=== PATIENT | male | born 1980 | race Caucasian/White ===

== ENCOUNTER 2017-10-03 11:23 | Inpatient (IN) | payer MEDICAID, OTHER, SELFPAY ==
[2017-10-03] MEDS: NICOTINE 21MG/24HR 1 EA TRANSDERMAL TD (09:00)
[2017-10-03] MEDS: FOLIC ACID 1 MG TAB PO (09:00)
[2017-10-03] MEDS ORDERED: MOM 30ML SUSPENSION UDC PO (14:00)
[2017-10-03] MEDS ORDERED: ACETAMINOPHEN TAB 650MG DOSE (2X325MG) PO (14:00)
[2017-10-03] MEDS ORDERED: LORazepam 2 MG TAB PO (14:00)
[2017-10-03] MEDS ORDERED: traZODone 50 MG TAB PO (14:00)
[2017-10-03] MEDS ORDERED: MAALOX 30 ML SUSP *UDC PO (14:00)
[2017-10-03] MEDS: THIAMINE 100 MG TAB PO ×2 (14:51→21:00)
[2017-10-03] MEDS: MULTIVITAMINS/MINERALS THERAP 1 TAB PO (14:51)
[2017-10-04] MEDS: FOLIC ACID 1 MG TAB PO (08:59)
[2017-10-04] MEDS: MULTIVITAMINS/MINERALS THERAP 1 TAB PO (08:59)
[2017-10-04] MEDS: NICOTINE 21MG/24HR 1 EA TRANSDERMAL TD (08:59)
[2017-10-04] MEDS: THIAMINE 100 MG TAB PO ×2 (08:59→21:00)
[2017-10-04] MEDS: SERTRALINE HCL 50 MG TAB PO (09:00)
[2017-10-04 11:46] LABS: HEMATOCRIT 43.2 % (42.0-52.0); HEMOGLOBIN 14.4 g/dl (13.5-17.5); MEAN CORPUSCULAR HEMOGLOBIN 30.6 pg (27.0-33.0); MEAN CORPUSCULAR HGB CONC 33.3 g/dl (32.0-36.5); MEAN CORPUSCULAR VOLUME 91.9 fl (80.0-96.0); PLATELET COUNT, AUTOMATED 201 10^3/uL (150-450); WHITE BLOOD COUNT 6.4 10^3/uL (4.0-10.0)
[2017-10-04 12:49] LABS: ALBUMIN 3.6 GM/DL (3.2-5.2); ALBUMIN/GLOBULIN RATIO 1.03 (1.00-1.93); ALKALINE PHOSPHATASE 82 U/L (45-117); ALT/SGPT 22 U/L (12-78); ANION GAP 5 MEQ/L (8-16); AST/SGOT 16 U/L (7-37); BILIRUBIN,TOTAL 0.5 MG/DL (0.2-1.0); BLOOD UREA NITROGEN 6 MG/DL (7-18); CALCIUM LEVEL 8.6 MG/DL (8.5-10.1); CARBON DIOXIDE LEVEL 27 MEQ/L (21-32); CHLORIDE LEVEL 112 MEQ/L (98-107); CREATININE FOR GFR 0.88 MG/DL (0.70-1.30); GLOMERULAR FILTRATION RATE > 60.0 (>60); GLUCOSE, FASTING 100 MG/DL (70-100); POTASSIUM SERUM 4.2 MEQ/L (3.5-5.1); SODIUM LEVEL 144 MEQ/L (136-145); THYROID STIMULATING HORMONE 0.184 uIU/ML (0.358-3.740); TOTAL PROTEIN 7.1 GM/DL (6.4-8.2)
[2017-10-05] MEDS: SERTRALINE HCL 50 MG TAB PO (09:00)
[2017-10-05] MEDS: NICOTINE 21MG/24HR 1 EA TRANSDERMAL TD (09:00)
[2017-10-05] MEDS: THIAMINE 100 MG TAB PO (09:19)
[2017-10-05] MEDS: FOLIC ACID 1 MG TAB PO (09:19)
[2017-10-05] MEDS: MULTIVITAMINS/MINERALS THERAP 1 TAB PO (09:19)
== END 2017-10-05 13:25 | disposition home or self-care (01) | DRG 755 ==
LOC: M ED 11:23 → M ED INP 13:57 → M PSY 15:37
DX: F43.23 Adjustment disorder with mixed anxiety and depressed mood (principal); F41.0 Panic disorder [episodic paroxysmal anxiety]; F17.210 Nicotine dependence, cigarettes, uncomplicated; F10.10 Alcohol abuse, uncomplicated; Z91.5 Personal history of self-harm; Z79.899 Other long term (current) drug therapy

== ENCOUNTER → 2018-08-05 | Outpatient (REF) | payer OTHER ==
[~2018-08-05] MED LIST: /ESCI20TA; /QUET10TA; ALPR0.5T3 PO; BENI20TA11; DEPA500T2; FOLI1TAB11 PO; SERT50TA PO; TRAZ1TAB14 PO; VENL75CA2 PO; VITMTA PO
[2018-08-05 20:28] LABS: CHLAMYDIA DNA AMPLIFICATION NEGATIVE (NEGATIVE); GC DNA AMPLIFICATION NEGATIVE (NEGATIVE)
== END ==
LOC: M LAB REF 16:52
PROVIDERS: ATTEND Nurse Practitioner Primary Care
DX: R10.30 Lower abdominal pain, unspecified (principal)

== ENCOUNTER → 2018-08-23 | Outpatient (CLI) | payer OTHER ==
[~2018-08-23] MED LIST changes: -/ESCI20TA; -/QUET10TA; +LEXA1TAB2; +SERO1TAB; +SERT-141 PO; -SERT50TA PO
--- NOTE | 2018-08-23 15:04 | REP ---
Clinical: abdominal pain. Technique: Upright view of the chest with supine and upright views of the abdomen and pelvis. Findings: Frontal upright view of the chest demonstrates no acute cardiopulmonary process or free air below the diaphragm to suspect pneumoperitoneum. Supine and upright views of the abdomen and pelvis demonstrate nonspecific bowel gas pattern without obstruction or perforation. No organomegaly. No abnormal calcifications. Skeletal structures normal for age. Impression: Nonspecific bowel gas pattern. Electronically Signed by Paul Ramsey MD 08/23/2018 02:55 P
[2018-08-23 17:56] LABS: APPEARANCE, URINE CLEAR (CLEAR); BACTERIA, URINE AUTO NEGATIVE (NEGATIVE); BILIRUBIN, URINE AUTO NEGATIVE (NEGATIVE); BLOOD, URINE BLOOD NEGATIVE (NEGATIVE); COLOR, URINE YELLOW (YELLOW); GLUCOSE, URINE (UA) AUTO NEGATIVE (NEGATIVE); KETONE, URINE AUTO NEGATIVE (NEGATIVE); LEUKOCYTE ESTERASE, URINE AUTO NEGATIVE (NEGATIVE); NITRITE, URINE AUTO NEGATIVE (NEGATIVE); PROTEIN, URINE AUTO NEGATIVE (NEGATIVE); RBC, URINE AUTO 0 /HPF (0-3); SQUAMOUS EPITHELIAL CELL UR AU 0 /HPF (0-6); UROBILINOGEN, URINE AUTO 0.2 mg/dL (0.0-2.0); WBC, URINE AUTO 0 /HPF (0-3)
[2018-08-23 18:07] LABS: HEMATOCRIT 46.5 % (42.0-52.0); HEMOGLOBIN 15.1 g/dl (13.5-17.5); MEAN CORPUSCULAR HEMOGLOBIN 29.5 pg (27.0-33.0); MEAN CORPUSCULAR HGB CONC 32.5 g/dl (32.0-36.5); PLATELET COUNT, AUTOMATED 274 10^3/uL (150-450); RED BLOOD COUNT 5.11 10^6/uL (4.30-6.10); WHITE BLOOD COUNT 6.4 10^3/uL (4.0-10.0)
[2018-08-23 18:21] LABS: BLOOD UREA NITROGEN 11 MG/DL (7-18); CALCIUM LEVEL 9.1 MG/DL (8.5-10.1); CARBON DIOXIDE LEVEL 27 MEQ/L (21-32); CHLORIDE LEVEL 105 MEQ/L (98-107); CREATININE FOR GFR 1.08 MG/DL (0.70-1.30); GLOMERULAR FILTRATION RATE > 60.0 (>60); GLUCOSE, FASTING 87 MG/DL (70-100); POTASSIUM SERUM 4.3 MEQ/L (3.5-5.1); SODIUM LEVEL 141 MEQ/L (136-145)
== END ==
LOC: M WUC 14:39
PROVIDERS: ATTEND Nurse Practitioner Primary Care
DX: R10.30 Lower abdominal pain, unspecified (principal)

== ENCOUNTER → 2019-06-16 | Outpatient (CLI) | payer MEDICAID | LOC: M OUTALCOH 08:12 | PROVIDERS: ATTEND Psychiatry & Neurology Addiction Medicine | DX: Z03.89 Encounter for observation for other suspected diseases and conditions ruled out (principal) ==

== ENCOUNTER 2019-06-24 08:00 | Outpatient (RCR) | payer MEDICAID | END 2019-07-19 | LOC: M OUTALCOH 08:00 | PROVIDERS: ATTEND Psychiatry & Neurology Addiction Medicine | DX: Z03.89 Encounter for observation for other suspected diseases and conditions ruled out (principal) ==

== ENCOUNTER → 2021-09-09 | Outpatient (CLI) | payer BC | LOC: M PLARAD 12:28 | PROVIDERS: ATTEND Physician Assistant | DX: M79.661 Pain in right lower leg (principal) ==

== ENCOUNTER → 2021-10-25 | Outpatient (CLI) | payer BC | LOC: M PLAIMG 09:54 | PROVIDERS: ATTEND Physician Assistant | DX: M51.26 Other intervertebral disc displacement, lumbar region (principal); M51.36 Other intervertebral disc degeneration, lumbar region; M54.16 Radiculopathy, lumbar region ==

== ENCOUNTER → 2023-11-02 | Outpatient (CLI) | payer SELFPAY ==
[~2023-11-02] MED LIST changes: +ASPI81TAEC PO; +CRES10TA PO; +LEVO1TAB40 PO; +LISI2.5T9 PO; +med rec comment
== END ==
LOC: M OUTALCOH 09:14
PROVIDERS: ATTEND Psychiatry & Neurology Psychiatry
DX: F10.10 Alcohol abuse, uncomplicated (principal)

== ENCOUNTER → 2024-07-08 | Outpatient (REF) | payer OTHER ==
[2024-07-08 15:08] LABS: CK-MB VALUE MASS < 1.0 NG/ML (<3.6)
[2024-07-08 15:16] LABS: CPK CREATINE PHOSPHOKINASE 130 U/L (46-171); MB/CK RELATIVE INDEX 0.76 (< OR =4)
== END ==
LOC: M LAB REF 13:02
PROVIDERS: ATTEND Internal Medicine
DX: R07.9 Chest pain, unspecified (principal); R00.0 Tachycardia, unspecified; N39.0 Urinary tract infection, site not specified